=== PATIENT | female | born 1990 | race Caucasian/White ===

== ENCOUNTER 2020-03-28 14:29 | Emergency (ER) | payer OTHER, SELFPAY ==
[2020-03-28 14:35] VITALS: BP 150/93; PULSE 95; RESP 12; O2SAT 98; BMI 19.3
--- NOTE | 2020-03-28 14:38 | DI.RAD.S_ITS ---
PROCEDURE: XR FOOT LT MIN 3V INDICATIONS: dropped heavy object on left foot/pain/swelling TECHNIQUE: 3 views of the foot were acquired. COMPARISON: None. FINDINGS: Bones: There is a transverse fracture involving the 3rd proximal phalangeal neck with mild lateral displacement of the distal fracture fragment. No suspicious bony lesions. Soft tissues: No tibiotalar joint effusion. Achilles tendon appears normal. Soft tissue swelling in the dorsum of the distal foot. IMPRESSION: 3rd proximal phalangeal neck fracture. Dictated by: Christiano Greenberg M.D. on 03/28/2020 at 14:49 Approved by: Christiano Greenberg M.D. on 03/28/2020 at 14:59
[2020-03-28] MEDS: IBUPROFEN 400 MG TABLET 800 MG PO (16:35)
[2020-03-28 17:41] VITALS: PULSE 76; O2SAT 100
[2020-03-28 18:00] VITALS: PULSE 64; O2SAT 100
--- NOTE | 2020-03-28 18:16 | ED_ITS ---
HPI - Extremity Injury (Lower) General Chief Complaint: Extremity Injury, Lower Stated Complaint: top of left foot injury today Time Seen by Provider: 03/28/20 17:57 Source: patient Mode of arrival: Ambulatory Limitations: no limitations History of Present Illness HPI Narrative: 29-year-old otherwise healthy female here for evaluation of left foot injury. Patient states that she dropped a brake rotor from a vehicle on to her foot. Since that time she has had pain and swelling difficulty walking. No prior injuries. His kept it elevated otherwise no other interventions. Related Data Previous Rx's Medication Instructions Recorded phenazopyridine [Pyridium] 200 mg PO TID PRN #6 tab 03/05/17 sulfamethoxazole-trimethoprim 1 tab PO BID #14 tab 03/05/17 Allergies Allergy/AdvReac Type Severity Reaction Status Date / Time No Known Allergies Allergy Verified 03/28/20 18:23 Review of Systems Constitutional Constitutional: Denies fever(s) Cardiovascular Cardiovascular: Denies chest pain and Denies dyspnea Respiratory Respiratory: Denies dyspnea Musculoskeletal Musculoskeletal: Denies tingling Comments: Tenderness to palpation distal left foot Integumentary/Breasts Comments: Bruising to top of left foot Neurologic Neurologic: Denies tingling Hematologic/Lymphatic Hematologic/Lymphatic: Denies easy bleeding and Denies easy bruising Allergic/Immunologic Allergic/Immunologic: Denies urticaria Patient History Medical History Healthy adult Social History Smoking Status: Never smoker Smoking Status: Never smoker alcohol intake frequency: a few times a month Substance Use Type: marijuana Exam Initial Vital Signs Initial Vital Signs: Vital Signs Pulse Rate 95 H 03/28/20 14:35 Respiratory Rate 12 03/28/20 14:35 Blood Pressure 150/93 H 03/28/20 14:35 Pulse Oximetry 98 03/28/20 14:35 Const General: cooperative Limitations: mental status not altered Cardio Pulses: dorsalis pedis present on the left Skin Other: Bruising from midfoot for red left foot. Neuro Sensory Exam: no sensory deficits noted Extrem Other: Tenderness to palpation great 2nd and 3rd toe and over midfoot left foot Psych Appearance: grossly normal and well kempt Procedures Orthopedic Splinting/Casting Injury #1: Side: left Lower Extremity Injury Location: foot Lower Extremity Immobilizer: post-op shoe and martha tape Other Orthopedic Equipment: crutches Post splinting neuro exam: intact Post splinting vascular exam: intact Placed by: Nursing Course Orders Ordered: ED Orders 03/28/20 14:38 XR foot LT min 3V Stat Discontinued Medications Hydrocodone Bitart/Acetaminophen (Hydrocodone/Acet 5/325 Tablet) 1 tab PO NOW ONE Stop: 03/28/20 18:17 Last Admin: 03/28/20 18:24 Dose: 1 tab Documented by: RAMSES Ibuprofen (Ibuprofen 400 Mg Tablet) 800 mg PO NOW ONE Stop: 03/28/20 14:47 Last Admin: 03/28/20 16:35 Dose: 800 mg Documented by: RAMSES Vital Signs Vital signs: Vital Signs - 8 hr 03/28/20 17:41 03/28/20 18:00 03/28/20 18:23 Pulse Rate 76 64 90 Respiratory Rate Blood Pressure 123/69 Pulse Oximetry 100 100 100 03/28/20 18:27 Pulse Rate Respiratory Rate 16 Blood Pressure Pulse Oximetry MDM - Extremity Injury (Lower) Imaging Data Extremity x-ray #1: Radiologist's Impression: [address] [id number] ReportSigned Patient: Ally Marie LMR#: [id number]: [id number]:[id number]/Sex: 29 / FDate of Service: 03/28/20Loc: EDAccession Number: [id number] Procedure: XR foot LT min 3V Ordering Provider: Gillian Farrar D.O. PROCEDURE: XR FOOT LT MIN 3V INDICATIONS: dropped heavy object on left foot/pain/swelling TECHNIQUE: 3 views of the foot were acquired. COMPARISON: None. FINDINGS: Bones: There is a transverse fracture involving the 3rd proximal phalangeal neck with mild lateral displacement of the distal fracture fragment. No suspicious bony l esions. Soft tissues: No tibiotalar joint effusion. Achilles tendon appears normal. Soft tissue swelling in the dorsum of the distal foot. IMPRESSION: 3rd proximal phalangeal neck fracture. Dictated by: Christiano Greenberg M.D. on 03/28/2020 at 14:49 Approved by: Christiano Greenberg M.D. on 03/28/2020 at 14:59 MDM Narrative Medical decision making narrative: He is neurovascular intact, does have a fracture noted on the x-ray. I have low suspicion for compartment syndrome although she does have a significant amount of bruising on the dorsum of the left foot. We discussed martha taping her toe. She was given a orthopedic shoe and crutches. She was given return precautions and follow-up instructions. She expressed understanding and agreement. Discharge Plan Departure Patient Disposition: Home Clinical Impression: Fracture of toe of left foot Instructions: How to Use Crutches, DI for Toe Fracture, How to Martha Tape Activity Restrictions/Additional Instructions: There was a fracture of the 3rd toe on your left foot. Recommend that use the orthopedic shoe and crutches and martha-tape like we discussed. Keep your foot elevated. Contact your primary provider for a follow-up. Return to the emergency department for any new or worsening symptoms Prescriptions: No Action sulfamethoxazole-trimethoprim 800 MG/160 MG tablet 1 tab PO BID Qty: 14 RF: 0 phenazopyridine [Pyridium] 200 MG tablet 200 mg PO TID PRNQty: 6 RF: 0
[2020-03-28 18:23] VITALS: BP 123/69; PULSE 90; O2SAT 100
[2020-03-28] MEDS: HYDROCODONE/ACET 5/325 TABLET 1 TAB PO (18:24)
[2020-03-28 18:27] VITALS: RESP 16
== END 2020-03-28 19:06 | disposition home or self-care (01) ==
PROVIDERS: Emergency Provider Emergency Medicine
DX: S92.912A Unspecified fracture of left toe(s), initial encounter for closed fracture (principal); W22.8XXA Striking against or struck by other objects, initial encounter
CPT/HCPCS: 73630; 99283